=== PATIENT | female | born 1985 | race Two or more races ===

== ENCOUNTER 2018-02-26 20:41 | Emergency (ER) | payer SELFPAY ==
[~2018-02-26] VITALS: Ht 167.6 cm; Wt 65.3 kg
[2018-02-26 21:03] VITALS: BP 147/107
[2018-02-26] MEDS ORDERED: IV NORMAL SALINE 1,000ML 1,000 ML IV ONE (21:30)
[2018-02-26] MEDS ORDERED: KETOROLAC 15 MG/ML VIAL. IV ONE (21:30)
[2018-02-26] MEDS ORDERED: LORazepam 2 MG/ML VIAL IV ONE (21:30)
[2018-02-26 21:47] LABS: BASO # 0.1 x10^3/uL (0.0-0.2); BASO % 1 % (0-3); EOS % 1 % (0-3); HEMATOCRIT 41.4 % (36.0-47.0); HEMOGLOBIN 14.3 g/dL (12.0-15.5); LYMPH # 1.6 x10^3/uL (1.0-4.8); LYMPH % 19 % (24-48); MEAN CORPUSCULAR HEMOGLOBIN 33 pg (25-35); MEAN CORPUSCULAR HGB CONC 35 g/dL (31-37); MEAN CORPUSCULAR VOLUME 94 fL (79-100); MONO # 0.4 x10^3/uL (0.0-1.1); MONO % 5 % (0-9); NEUT # 6.3 x10^3uL (1.8-7.7); NEUT % 75 % (31-73); PLATELET COUNT 268 x10^3/uL (140-400); RED BLOOD COUNT 4.38 x10^6/uL (3.50-5.40); RED CELL DISTRIBUTION WIDTH 13.5 % (11.5-14.5); WHITE BLOOD COUNT 8.5 x10^3/uL (4.0-11.0)
[2018-02-26 22:05] LABS: ALBUMIN 3.9 g/dL (3.4-5.0); ALBUMIN/GLOBULIN RATIO 1.1 (1.0-1.7); CALCIUM 9.1 mg/dL (8.5-10.1); CREATININE 0.6 mg/dL (0.6-1.0); GFR 116.6; POTASSIUM 3.8 mmol/L (3.5-5.1); TOTAL BILIRUBIN 0.2 mg/dL (0.2-1.0); TOTAL PROTEIN 7.4 g/dL (6.4-8.2)
[2018-02-26 22:23] LABS: U PREG PATIENT NEGATIVE (NEG)
[2018-02-26 22:24] LABS: MAGNESIUM 1.9 mg/dL (1.8-2.4)
[2018-02-26 22:27] LABS: BACTERIA,URINE MANY /HPF (0-FEW); BILIRUBIN,URINE NEG (NEG); CLARITY,URINE HAZY; COLOR,URINE YELLOW; GLUCOSE,URINE NEG (NEG); NITRITE,URINE POS (NEG); RBC,URINE 0 /HPF (0-2); SQUAMOUS EPITHELIAL CELL,UR MOD /LPF; UROBILINOGEN,URINE 0.2 mg/dL (0.2 mg/dL)
[2018-02-26 22:28] LABS: BARBITURATES NEG (NEG); BENZODIAZEPINES NEG (NEG); CANNABINOIDS NEG (NEG); COCAINE NEG (NEG); METHADONE NEG (NEG); OPIATES NEG (NEG); PHENCYCLIDINE NEG (NEG)
[2018-02-26 22:29] LABS: AMPHETAMINE/METHAMPHETAMINE NEG (NEG)
[2018-02-26] MEDS ORDERED: LORA-254 PO (23:00)
[2018-02-26] MEDS ORDERED: CEPHALEXIN 250 MG CAPSULE PO ONE (23:00)
[2018-02-26] MEDS ORDERED: CEPH-264 PO (23:00)
--- NOTE | 2018-02-26 23:00 | PHYS DOC ---
Past History Past Medical History: Anxiety, Bipolar, Depression, Other Additional Past Medical Histor: PTSD Past Surgical History: No Surgical History Smoking: Cigarettes, Less than 1pk/day (Socially) Alcohol Use: Occasionally (socially) Social History Narrative: Form drug user Adult General Chief Complaint Chief Complaint: ANXIETY/PANIC ATTACK HPI HPI 33-year-old female with past medical history of anxiety, depression, PTSD, and bipolar disorder for which she is currently not taking any medication presents with report of possible panic attacks which have been intermittent for the past 3 days. Patient has had similar in the past. Patient reports she just "doesn't feel". Reports some headache. Reports palpitations. Reports generalized malaise. Patient does report some increased life stressors. [facility] and has appointment for next Saturday. Denies . Denies known trauma. Denies leg swelling or calf tenderness. Review of Systems Review of Systems Constitutional: Denies fever or chills; reports generalized malaise Eyes: Denies change in visual acuity, redness, or eye pain [] HENT: Denies nasal congestion or sore throat [] Respiratory: Denies cough; reports shortness of breath [] Cardiovascular: Denies chest pain; reports palpitations GI: Denies abdominal pain, nausea, vomiting, or diarrhea [] : Denies dysuria or hematuria [] Musculoskeletal: Denies back pain or leg swelling Integument: Denies rash or skin lesions [] Neurologic: Denies headache, focal weakness or sensory changes [] Complete systems were reviewed and found to be within normal limits, except as documented in this note. Current Medications Current Medications Current Medications Medications (Trade) Dose Ordered Sig/[facility] Start Time Stop Time Status Last Admin Dose Admin Ketorolac Tromethamine (Toradol 15mg Vial) 15 mg 1X ONCE 02/26/18 21:30 02/26/18 21:32 DC 02/26/18 21:36 15 MG Lorazepam (Ativan) 1 mg 1X ONCE 02/26/18 21:30 02/26/18 21:32 DC 02/26/18 21:36 1 MG Sodium Chloride 1,000 ml @ 1,000 mls/hr 1X ONCE 02/26/18 21:30 02/26/18 22:29 DC 02/26/18 21:35 1,000 MLS/HR Allergies Allergies Allergies Coded Allergies Type Severity Reaction Last Updated Verified No Known Drug Allergies 02/26/18 No Physical Exam Physical Exam Constitutional: Well developed, well nourished, anxious, crying hysterically HENT: Normocephalic, atraumatic, oropharynx moist, nose with clear discharge] Eyes: PERRL, EOMI, conjunctiva normal, no discharge. [] Neck: Normal range of motion, no tenderness, supple, no meningeal signs Cardiovascular: Heart rate regular rhythm, no murmur [] Lungs & Thorax: Bilateral breath sounds clear to auscultation; no wheezes rhonchi or rails Abdomen: Soft, no tenderness Skin: Warm, dry, no erythema, no rash. [] Extremities: No tenderness, ROM intact, no edema. [] Neurologic: Alert and oriented X 3, normal motor function, normal sensory function, no focal deficits noted. [] Psychologic: Affect- crying, Mood- anxious Current Patient Data Vital Signs Vital Signs Date Time Temp Pulse Resp B/P (MAP) Pulse Ox O2 Delivery O2 Flow Rate FiO2 02/26/18 21:03 98.5 98 18 98 Room Air Lab Results Laboratory Tests Test 02/26/18 21:29 02/26/18 21:30 02/26/18 22:05 White Blood Count 8.5 x10^3/uL (4.0-11.0) Red Blood Count 4.38 x10^6/uL (3.50-5.40) Hemoglobin 14.3 g/dL (12.0-15.5) Hematocrit 41.4 % (36.0-47.0) Mean Corpuscular Volume 94 fL (79-100) Mean Corpuscular Hemoglobin 33 pg (25-35) Mean Corpuscular Hemoglobin Concent 35 g/dL (31-37) Red Cell Distribution Width 13.5 % (11.5-14.5) Platelet Count 268 x10^3/uL (140-400) Neutrophils (%) (Auto) 75 % (31-73) H Lymphocytes (%) (Auto) 19 % (24-48) L Monocytes (%) (Auto) 5 % (0-9) Eosinophils (%) (Auto) 1 % (0-3) Basophils (%) (Auto) 1 % (0-3) Neutrophils # (Auto) 6.3 x10^3uL (1.8-7.7) Lymphocytes # (Auto) 1.6 x10^3/uL (1.0-4.8) Monocytes # (Auto) 0.4 x10^3/uL (0.0-1.1) Eosinophils # (Auto) 0.0 x10^3/uL (0.0-0.7) Basophils # (Auto) 0.1 x10^3/uL (0.0-0.2) Magnesium Level 1.9 mg/dL (1.8-2.4) Creatine Kinase 67 U/L (26-192) Creatine Kinase MB (Mass) 0.9 ng/mL (0.0-3.6) Creatine Kinase MB Relative Index 1.3 % (0-4) Troponin I Quantitative < 0.017 ng/mL (0-0.055) Ethyl Alcohol Level < 10 mg/dL (0-10) Sodium Level 138 mmol/L (136-145) Potassium Level 3.8 mmol/L (3.5-5.1) Chloride Level 104 mmol/L (98-107) Carbon Dioxide Level 26 mmol/L (21-32) Anion Gap 8 (6-14) Blood Urea Nitrogen 8 mg/dL (7-20) Creatinine 0.6 mg/dL (0.6-1.0) Estimated GFR (Cockcroft-Gault) 116.6 BUN/Creatinine Ratio 13 (6-20) Glucose Level 114 mg/dL (70-99) H Calcium Level 9.1 mg/dL (8.5-10.1) Total Bilirubin 0.2 mg/dL (0.2-1.0) Aspartate Amino Transferase (AST) 14 U/L (15-37) L Alanine Aminotransferase (ALT) 25 U/L (14-59) Alkaline Phosphatase 86 U/L (46-116) Total Protein 7.4 g/dL (6.4-8.2) Albumin 3.9 g/dL (3.4-5.0) Albumin/Globulin Ratio 1.1 (1.0-1.7) Urine Collection Type Unknown Urine Color Yellow Urine Clarity Hazy Urine pH 6.5 Urine Specific [place] 1.015 Urine Protein Neg (NEG-TRACE) Urine Glucose (UA) Neg mg/dL (NEG) Urine Ketones (Stick) Neg mg/dL (NEG) Urine Blood Trace (NEG) Urine Nitrite Pos (NEG) Urine Bilirubin Neg (NEG) Urine Urobilinogen Dipstick 0.2 mg/dL (0.2 mg/dL) Urine Leukocyte Esterase Mod (NEG) Urine RBC 0 /HPF (0-2) Urine WBC 5-10 /HPF (0-4) Urine Squamous Epithelial Cells Mod /LPF Urine Bacteria Many /HPF (0-FEW) Urine Test Negative (NEG) Urine Opiates Screen Neg (NEG) Urine Methadone Screen Neg (NEG) Urine Barbiturates Neg (NEG) Urine Phencyclidine Screen Neg (NEG) Urine Amphetamine/Methamphetamine Neg (NEG) Urine Benzodiazepines Screen Neg (NEG) Urine Cocaine Screen Neg (NEG) Urine Cannabinoids Screen Neg (NEG) Urine Ethyl Alcohol Neg (NEG) EKG EKG @2139 NSR at 80bpm, NO ST elevation Radiology/Procedures Radiology/Procedures PROCEDURE: CHEST PA & LATERAL PA and lateral chest radiographs 02/26/2018 Clinical History: Chest pain and shortness of breath. PA and lateral digital radiographs of the chest were obtained. No previous studies are available for comparison. The cardiac and mediastinal silhouettes are within normal limits in size and configuration. No pulmonary infiltrate is seen. No pleural effusion or pneumothorax is noted. The osseous structures are grossly intact. Impression: No radiographic evidence of active cardiopulmonary disease. Electronically signed by: Alexandro Davis MD (02/26/2018 11:53 PM) [facility] Course & Med Decision Making Course & Med Decision Making Pertinent Labs and Imaging studies reviewed. (See chart for details) Patient presents with history of present illness and physical exam concerning for panic attack. Patient does have history of anxiety, depression, PTSD, and bipolar disorder for which she is not currently prescribed any medication. Ativan provided with interval improvement of symptoms. Labs obtained and posted to chart. EKG stable. UA with signs of infection (positive nitrite). Empiric antibiotics initiated. Patient stable for discharge with outpatient follow-up with PCP/psych/behavioral health. Discussed findings and plan with patient and family, who acknowledge understanding and agreement. Dragon Disclaimer Dragon Disclaimer This electronic medical record was generated, in whole or in part, using a voice recognition dictation system. Departure Departure: Impression: Primary Impression: Anxiety Additional Impression: Urinary tract infection Disposition: HOME, SELF-CARE Condition: IMPROVED Referrals: PCPYARIEL (PCP) Patient Instructions: Anxiety and Panic Attacks, [id number], Urinary Tract Infection, [id number] Scripts Lorazepam (ATIVAN) 1 Mg Tablet 0.5 MG PO Q6HRS PRN for ANXIETY, #10 TAB Prov: KEHINDE ORDOÑEZ DO 02/26/18 Cephalexin (KEFLEX) 500 Mg Capsule 1 CAP PO TID, #21 CAP Prov: KEHINDE ORDOÑEZ DO 02/26/18 Problem Qualifiers Additional Impression: Urinary tract infection Urinary tract infection type: acute cystitis Hematuria presence: without hematuria Qualified Codes: N30.00 - Acute cystitis without hematuria KEHINDE ORDOÑEZ DO Feb 26, 2018 23:00
--- NOTE | 2018-02-26 23:57 | RAD ---
PA and lateral chest radiographs 02/26/2018 Clinical History: Chest pain and shortness of breath. PA and lateral digital radiographs of the chest were obtained. No previous studies are available for comparison. The cardiac and mediastinal silhouettes are within normal limits in size and configuration. No pulmonary infiltrate is seen. No pleural effusion or pneumothorax is noted. The osseous structures are grossly intact. Impression: No radiographic evidence of active cardiopulmonary disease. Electronically signed by: Alexandro Davis MD (02/26/2018 11:53 PM) [facility]
--- NOTE | 2018-02-27 04:08 | EKG ---
[address] [address] Test Date: 2018-02-26 Test Time: 21:39:26 Pat Name: KYLE TAVAREZ Department: Room: Gender: F Cinder [employer] Mason: : 1985 Requested By: KHEINDE ORDOÑEZ Order Number: [id number] Reading MD: Tank Zee MD Measurements Intervals [place] Rate: 80 P: 59 NV: 138 QRS: 41 QRSD: 80 T: 32 QT: 364 QTc: 423 Interpretive Statements SINUS RHYTHM Electronically Signed On 03-03-2018 10:53:55 CDT by Tank Zee MD
[2018-02-27 13:01] LABS: FREE T4 1.01 ng/dL (0.76-1.46); THYROID STIM HORMONE (TSH) 1.802 uIU/mL (0.358-3.740)
== END 2018-02-26 23:19 | disposition home or self-care (01) ==
LOC: ER 20:41
DX: F41.9 Anxiety disorder, unspecified (principal); N39.0 Urinary tract infection, site not specified; F31.9 Bipolar disorder, unspecified; F43.10 Post-traumatic stress disorder, unspecified; F17.210 Nicotine dependence, cigarettes, uncomplicated
CPT/HCPCS: 36415; 71046; 80053; 80307; 81001; 81025; 82553; 83735; 84439; 84443; 84484; 85025; 87086; 93005; 96374; 96375; 99285; G0480; J1885; J2060; 87186; G0479; J7030

== ENCOUNTER 2018-03-27 01:36 | Emergency (ER) | payer SELFPAY ==
[~2018-03-27] VITALS: Ht 157.5 cm; Wt 69.4 kg
[~2018-03-27 01:36] MED LIST: CEPH-264 PO; LORA-254 PO
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
[2018-03-27 02:29] LABS: BACTERIA,URINE FEW /HPF (0-FEW); BILIRUBIN,URINE NEG (NEG); CLARITY,URINE HAZY; COLOR,URINE YELLOW; GLUCOSE,URINE NEG (NEG); NITRITE,URINE NEG (NEG); RBC,URINE RARE /HPF (0-2); SQUAMOUS EPITHELIAL CELL,UR OCC /LPF; UROBILINOGEN,URINE 0.2 mg/dL (0.2 mg/dL)
[2018-03-27 02:30] LABS: BARBITURATES NEG (NEG); BENZODIAZEPINES NEG (NEG); CANNABINOIDS POS (NEG); COCAINE NEG (NEG); METHADONE NEG (NEG); OPIATES NEG (NEG); PHENCYCLIDINE NEG (NEG); TRICHOMONAS,URINE PRESENT
[2018-03-27] MEDS ORDERED: ONDA8TAB12 PO (02:30)
[2018-03-27] MEDS ORDERED: CYCL-331 PO (02:30)
[2018-03-27 02:31] LABS: AMPHETAMINE/METHAMPHETAMINE NEG (NEG)
[2018-03-27] MEDS ORDERED: KETOROLAC 60 MG/2 ML VIAL. IM ONE (02:45)
[2018-03-27] MEDS ORDERED: ONDANSETRON ODT 4 MG TAB.RAPDIS PO ONE ×2 (02:45→03:45)
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
[2018-03-27] MEDS ORDERED: CEPH-264 PO (03:31)
[2018-03-27] MEDS ORDERED: metroNIDAZOLE 500 MG TABLET PO ONE (03:45)
[2018-03-27] MEDS ORDERED: AZITHROMYCIN 250 MG TABLET. PO ONE (03:45)
[2018-03-27] MEDS ORDERED: cefTRIAXone IM 1 GM VIAL IM ONE (03:45)
[2018-03-27 04:49] VITALS: BP 141/87
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
== END 2018-03-27 04:49 | disposition home or self-care (01) ==
LOC: ER 01:36
DX: S39.012A Strain of muscle, fascia and tendon of lower back, initial encounter (principal); R07.89 Other chest pain; R51 Headache; A59.9 Trichomoniasis, unspecified; N39.0 Urinary tract infection, site not specified; F17.210 Nicotine dependence, cigarettes, uncomplicated; Z87.440 Personal history of urinary (tract) infections; V43.63XA Car passenger injured in collision with pick-up truck in traffic accident, initial encounter; Y93.89 Activity, other specified; Y92.488 Other paved roadways as the place of occurrence of the external cause; Y99.8 Other external cause status
CPT/HCPCS: 36415; 70450; 71046; 72125; 80307; 81001; 81025; 87086; 87491; 87591; 96372; 99285; J0456; J0696; J1885; Q0162; G0479

== ENCOUNTER 2018-05-21 02:33 | Emergency (ER) | payer SELFPAY ==
[~2018-05-21] VITALS: Ht 157.5 cm; Wt 74.8 kg
[~2018-05-21 02:33] MED LIST changes: +CYCL-331 PO; +ONDA8TAB12 PO
[2018-05-21 02:38] VITALS: BP 119/68
--- NOTE | 2018-05-21 03:14 | PHYS DOC ---
Past History Past Medical History: Anxiety Additional Past Medical Histor: PTSD Past Surgical History: No Surgical History Smoking: Cigarettes, Less than 1pk/day Additional Smoking Information: / PPD Alcohol Use: Occasionally Additional Alcohol Information: 3 times a week Drug Use: Marijuana Adult General Chief Complaint Chief Complaint: FINGER INJURY HPI HPI 33-year-old female presents with bilateral finger swelling. The patient has had some intermittent swelling of her hands lately. 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 Ring felt so tight that it seemed to be constricting the finger. It was erythematous, but not hot. She denies loss of feeling or paresthesia. She is unable to get this ring off. The patient also noticed that her right ring finger which also had a ring on it seemed to be swelling the same way, but was not as tight yet. She came to the ED to have the rings removed. The patient has been eating more salty foods lately due to the holidays. Review of Systems Review of Systems Constitutional: Denies fever or chills [] Eyes: Denies change in visual acuity, redness, or eye pain [] HENT: Denies nasal congestion or sore throat [] Respiratory: Denies cough or shortness of breath [] Cardiovascular: No additional information not addressed in HPI [] GI: Denies abdominal pain, nausea, vomiting, bloody stools or diarrhea [] : Denies dysuria or hematuria [] Musculoskeletal: Bilateral hand swelling with ringed strictures on bilateral ring fingers.[] Integument: Denies rash or skin lesions [] Neurologic: Denies headache, focal weakness or sensory changes [] Endocrine: Denies polyuria or polydipsia [] All other systems were reviewed and found to be within normal limits, except as documented in this note. Allergies Allergies Allergies Coded Allergies Type Severity Reaction Last Updated Verified No Known Drug Allergies 02/26/18 No Physical Exam Physical Exam Constitutional: Well developed, well nourished, no acute distress, non-toxic appearance. [] HENT: Normocephalic, atraumatic, bilateral external ears normal, oropharynx moist, no oral exudates, nose normal. [] Eyes: PERRLA, EOMI, conjunctiva normal, no discharge. [] Neck: Normal range of motion, no tenderness, supple, no stridor. [] Cardiovascular:Heart rate regular rhythm, no murmur [] Lungs & Thorax: Bilateral breath sounds clear to auscultation [] Abdomen: Bowel sounds normal, soft, no tenderness, no masses, no pulsatile masses. [] Skin: Warm, dry, no erythema, no rash. [] Back: No tenderness, no CVA tenderness. [] Extremities: Bilateral finger swelling. Left ring finger with erythema, no warmth, ring is tight around the skin. Right ring finger mildly erythematous, no warmth, ring has some movement on that finger.[] Neurologic: Alert and oriented X 3, normal motor function, normal sensory function, no focal deficits noted. [] Psychologic: Affect normal, judgement normal, mood normal. [] Current Patient Data Vital Signs Vital Signs Date Time Temp Pulse Resp B/P (MAP) Pulse Ox O2 Delivery O2 Flow Rate FiO2 05/21/18 02:38 97.9 69 99 Room Air EKG EKG [] Radiology/Procedures Radiology/Procedures [] Course & Med Decision Making Course & Med Decision Making Pertinent Labs and Imaging studies reviewed. (See chart for details) The patient's ring on her left hand was too swollen to be removed manually. I was able to cut this off with a ring cutter and then side snips. There were no complications. The patient wanted to preserve the ring on her right hand possible. We placed ice around that finger for a few minutes and the patient was able to manually remove the ring. The patient had immediate relief of the discomfort in her fingers. She is stable for discharge at this time. [] Dragon Disclaimer Dragon Disclaimer This electronic medical record was generated, in whole or in part, using a voice recognition dictation system. Departure Departure: Impression: Primary Impression: Bilateral hand swelling Additional Impression: Ring or other jewelry causing external constriction, initial e... Disposition: HOME, SELF-CARE Condition: STABLE Patient Instructions: Edema, [id number] Problem Qualifiers VICTORIA INGARM DO May 21, 2018 03:14
== END 2018-05-21 03:11 | disposition home or self-care (01) ==
LOC: ER 02:33
DX: S60.445A External constriction of left ring finger, initial encounter (principal); S60.444A External constriction of right ring finger, initial encounter; R22.33 Localized swelling, mass and lump, upper limb, bilateral; F41.9 Anxiety disorder, unspecified; F17.210 Nicotine dependence, cigarettes, uncomplicated; W49.04XA Ring or other jewelry causing external constriction, initial encounter; Y93.89 Activity, other specified; Y92.89 Other specified places as the place of occurrence of the external cause; Y99.8 Other external cause status
CPT/HCPCS: 99284

== ENCOUNTER 2018-07-24 16:49 | Emergency (ER) | payer SELFPAY ==
[~2018-07-24] VITALS: Ht 157.5 cm; Wt 69.4 kg
[2018-07-24 17:10] VITALS: BP 112/61
[2018-07-24] MEDS ORDERED: NAPR500T8 PO (17:10)
[2018-07-24] MEDS ORDERED: PENI500T PO (17:10)
--- NOTE | 2018-07-24 17:10 | PHYS DOC ---
Past History Past Medical History: Anxiety Additional Past Medical Histor: PTSD Past Surgical History: No Surgical History Smoking: Cigarettes, Less than 1pk/day Alcohol Use: Occasionally Drug Use: Marijuana Adult General Chief Complaint Chief Complaint: DENTAL PROBLEM HPI HPI 33-year-old otherwise healthy female presents with toothache. She states her right upper molar is cracked and is been causing a lot of pain. She's not noticed any swelling. She does states she has cold intolerance. She states it feels like tiny needles poking her at all times. She also has some pain on the bottom half of her jaw. She feels like her gums may be swollen. She has not seen a dentist in some time. She has no issues with trismus.] Review of Systems Review of Systems All other systems were reviewed and found to be within normal limits, except as documented in this note. Allergies Allergies Allergies Coded Allergies Type Severity Reaction Last Updated Verified No Known Drug Allergies 02/26/18 No Physical Exam Physical Exam Constitutional: Well developed, well nourished, no acute distress, non-toxic appearance. [] HENT: Widespread caries she does have a noticeable fracture to her most posterior right upper molar[] Eyes: PERRLA, EOMI, conjunctiva normal, no discharge. [] Neck: Normal range of motion, no tenderness, supple, no stridor. [] Cardiovascular:Heart rate regular rhythm, no murmur [] Lungs & Thorax: Bilateral breath sounds clear to auscultation [] Abdomen: Bowel sounds normal, soft, no tenderness, no masses, no pulsatile masses. [] Skin: Warm, dry, no erythema, no rash. [] Back: No tenderness, no CVA tenderness. [] Extremities: No tenderness, no cyanosis, no clubbing, ROM intact, no edema. [] Neurologic: Alert and oriented X 3, normal motor function, normal sensory function, no focal deficits noted. [] Psychologic: Anxious. [] Current Patient Data Vital Signs Vital Signs Date Time Temp Pulse Resp B/P (MAP) Pulse Ox O2 Delivery O2 Flow Rate FiO2 07/24/18 16:59 97.6 74 18 98 EKG EKG [] Radiology/Procedures Radiology/Procedures [] Course & Med Decision Making Course & Med Decision Making Pertinent Labs and Imaging studies reviewed. (See chart for details) [] Dragon Disclaimer Dragon Disclaimer This electronic medical record was generated, in whole or in part, using a voice recognition dictation system. Departure Departure: Impression: Primary Impression: Pain due to dental caries Disposition: HOME, SELF-CARE Condition: STABLE Referrals: PCP,YARIEL (PCP) Patient Instructions: Dental Caries, Toothache-Brief Scripts Naproxen (NAPROXEN) 500 Mg Tablet.dr 1 TAB PO Q12HR PRN for PAIN, #30 TAB 1 Refill Prov: LENORE CHAPMAN DO 07/24/18 Penicillin V Potassium (PENICILLIN V POTASSIUM) 500 Mg Tablet 1 TAB PO QID for dental infection, #40 TAB Prov: LENORE CHAPMAN DO 07/24/18 LENORE CHAPMAN DO Jul 24, 2018 17:10
== END 2018-07-24 17:19 | disposition home or self-care (01) ==
LOC: ER 16:49
DX: K02.9 Dental caries, unspecified (principal); F41.9 Anxiety disorder, unspecified; F17.210 Nicotine dependence, cigarettes, uncomplicated
CPT/HCPCS: 99283

== ENCOUNTER 2018-09-29 12:58 | Emergency (ER) | payer SELFPAY ==
[~2018-09-29] VITALS: Ht 157.5 cm; Wt 77.4 kg
[~2018-09-29 12:58] MED LIST changes: +NAPR500T8 PO; +PENI500T PO
[2018-09-29] MEDS ORDERED: MVI, ADULT NO.4 WITH VIT K 10 ML, FOLIC ACID SYRINGE for ER 1 MG, THIAMINE INJ 100 MG i... IV ONE ×4 (13:30)
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
[2018-09-29 13:52] LABS: BASO % 1 % (0-3); EOS % 1 % (0-3); HEMATOCRIT 40.1 % (36.0-47.0); HEMOGLOBIN 13.5 g/dL (12.0-15.5); LYMPH # 1.3 x10^3/uL (1.0-4.8); LYMPH % 27 % (24-48); MEAN CORPUSCULAR HEMOGLOBIN 32 pg (25-35); MEAN CORPUSCULAR HGB CONC 34 g/dL (31-37); MEAN CORPUSCULAR VOLUME 96 fL (79-100); MONO # 0.3 x10^3/uL (0.0-1.1); MONO % 7 % (0-9); NEUT % 64 % (31-73); PLATELET COUNT 256 x10^3/uL (140-400); RED BLOOD COUNT 4.17 x10^6/uL (3.50-5.40); RED CELL DISTRIBUTION WIDTH 14.6 % (11.5-14.5); WHITE BLOOD COUNT 4.7 x10^3/uL (4.0-11.0)
[2018-09-29 14:05] LABS: ACETAMIN < 2.0 mcg/mL (10-30); ETHANOL 97 mg/dL (0-10); SALIC 3.1 mg/dL (2.8-20.0)
[2018-09-29 14:07] LABS: ALBUMIN 3.5 g/dL (3.4-5.0); ALBUMIN/GLOBULIN RATIO 0.9 (1.0-1.7); CALCIUM 8.4 mg/dL (8.5-10.1); CREATININE 0.4 mg/dL (0.6-1.0); GFR 186.2; POTASSIUM 4.1 mmol/L (3.5-5.1); TOTAL BILIRUBIN 0.2 mg/dL (0.2-1.0); TOTAL PROTEIN 7.3 g/dL (6.4-8.2)
[2018-09-29 14:12] LABS: AMPHETAMINE/METHAMPHETAMINE NEG (NEG); BARBITURATES NEG (NEG); BENZODIAZEPINES NEG (NEG); CANNABINOIDS POS (NEG); COCAINE NEG (NEG); METHADONE NEG (NEG); OPIATES NEG (NEG); PHENCYCLIDINE NEG (NEG)
[2018-09-29 14:17] LABS: BACTERIA,URINE 0 /HPF (0-FEW); BILIRUBIN,URINE NEG (NEG); CLARITY,URINE CLEAR; COLOR,URINE YELLOW; GLUCOSE,URINE NEG (NEG); NITRITE,URINE NEG (NEG); SQUAMOUS EPITHELIAL CELL,UR FEW /LPF; UROBILINOGEN,URINE 0.2 mg/dL (0.2 mg/dL)
[2018-09-29 16:08] VITALS: BP 151/98
== END 2018-09-29 16:12 | disposition home or self-care (01) ==
LOC: EEVIPCON 12:58 → ER 12:58
DX: R45.851 Suicidal ideations (principal); S60.812A Abrasion of left wrist, initial encounter; S60.811A Abrasion of right wrist, initial encounter; F41.9 Anxiety disorder, unspecified; F31.9 Bipolar disorder, unspecified; F17.210 Nicotine dependence, cigarettes, uncomplicated; F10.20 Alcohol dependence, uncomplicated; F12.10 Cannabis abuse, uncomplicated; F43.10 Post-traumatic stress disorder, unspecified; Y90.4 Blood alcohol level of 80-99 mg/100 ml; X78.0XXA Intentional self-harm by sharp glass, initial encounter; Y93.89 Activity, other specified; Y92.89 Other specified places as the place of occurrence of the external cause; Y99.8 Other external cause status
CPT/HCPCS: 36415; 80053; 80307; 80329; 81001; 85025; 96365; 96366; 99285; G0480; 82003; J7030

== ENCOUNTER 2019-01-11 13:45 | Inpatient (IN) | payer SELFPAY ==
[~2019-01-11] VITALS: Ht 157.5 cm; Wt 70.3 kg
--- NOTE | 2019-01-11 14:12 | PHYS DOC ---
Past History Past Medical History: Anxiety, Bipolar, Depression, Other Additional Past Medical Histor: PTSD Past Surgical History: No Surgical History Smoking: Cigarettes, Less than 1pk/day Alcohol Use: Heavy Drug Use: Marijuana Adult General Chief Complaint Chief Complaint: SUICDAL IDEATION [facility] HPI Patient is a 33-year-old female presents with suicidal ideation. She does not have a defined plan. She reports CPR having been performed on her this morning because of overdosing. Patient denies any chest pain or difficulty breathing. Patient reports drinking a bottle of whiskey just prior to arrival. Denies any other coingestants. Nothing makes symptoms better or worse.[] Review of Systems Review of Systems Constitutional: Denies fever or chills [] Eyes: Denies change in visual acuity, redness, or eye pain [] HENT: Denies nasal congestion or sore throat [] Respiratory: Denies cough or shortness of breath [] Cardiovascular: No additional information not addressed in HPI [] GI: Denies abdominal pain, nausea, vomiting, bloody stools or diarrhea [] : Denies dysuria or hematuria [] Musculoskeletal: Denies back pain or joint pain [] Integument: Denies rash or skin lesions [] Neurologic: Denies headache, focal weakness or sensory changes [] Endocrine: Denies polyuria or polydipsia [] All other systems were reviewed and found to be within normal limits, except as documented in this note. Allergies Allergies Allergies Coded Allergies Type Severity Reaction Last Updated Verified No Known Drug Allergies 02/26/18 No Physical Exam Physical Exam Constitutional: Well developed, well nourished, no acute distress, non-toxic appearance. [] HENT: Normocephalic, atraumatic, bilateral external ears normal, oropharynx moist, no oral exudates, nose normal. [] Eyes: PERRLA, EOMI, conjunctiva normal, no discharge. [] Neck: Normal range of motion, no tenderness, supple, no stridor. [] Cardiovascular:Heart rate regular rhythm, no murmur [] Lungs & Thorax: Bilateral breath sounds clear to auscultation [] Abdomen: Bowel sounds normal, soft, no tenderness, no masses, no pulsatile masses. [] Skin: Warm, dry, no erythema, no rash. [] Back: No tenderness, no CVA tenderness. [] Extremities: No tenderness, no cyanosis, no clubbing, ROM intact, no edema. [] Neurologic: Alert and oriented X 3, normal motor function, normal sensory function, no focal deficits noted. [] Psychologic: Affect tearful, judgement impaired, mood depressed. Patient will not answer with the trigger was that made her suicidal today[] EKG EKG EKG shows a sinus rhythm at 89 bpm, normal axis, no ST elevation. Normal QTC, no terminal 40 ms QRS prolongation in lead aVR. Interpreted by me at 1403[] Radiology/Procedures Radiology/Procedures PROCEDURE: PORTABLE CHEST 1V EXAM: AP View of the chest DATE: 01/11/2019 2:04 PM INDICATION: CPR was administered COMPARISON: No Prior FINDINGS: The heart is not enlarged. Mediastinal and hilar contours are normal. No focal parenchymal airspace opacity. No pleural effusion or pneumothorax. No definite rib fractures are seen on the single frontal view. IMPRESSION: 1. No radiographic evidence for acute cardiopulmonary process.[] Course & Med Decision Making Course & Med Decision Making Pertinent Labs and Imaging studies reviewed. (See chart for details) ED course: Patient arrived, was placed in bed, and tolerated exam well. Shortly after arriving she fell asleep. She was maintaining her airway. After the return of laboratory studies that were available (unable to get a urine sample), he elected to admit the patient given her alcohol level in the prolonged amount of time it would take for her to be at a low enough level for mental health to perform their evaluation. Consultation was made with the hospitalist service who graciously accepted. She was admitted in improved condition. Medical decision making: Patient with suicidal ideation who is alcohol intoxi cated. There is no evidence of an other significant toxidrome. No evidence of salicylate or acetaminophen toxicity. No evidence of significant electrolyte abnormalities.[] Dragon Disclaimer Dragon Disclaimer This electronic medical record was generated, in whole or in part, using a voice recognition dictation system. Departure Departure: Impression: Primary Impression: Alcohol intoxication Additional Impression: Suicidal ideation Disposition: 09 ADMITTED INPATIENT Admitting Physician: Anshu Sultana Condition: STABLE Referrals: PCP,NO (PCP) Problem Qualifiers Primary Impression: Alcohol intoxication Complication of substance-induced condition: uncomplicated Qualified Codes: F10.920 - Alcohol use, unspecified with intoxication, uncomplicated RAJINDER GALDAMEZ DO Jan 11, 2019 14:12
--- NOTE | 2019-01-11 14:44 | RAD ---
EXAM: AP View of the chest DATE: 01/11/2019 2:04 PM INDICATION: CPR was administered COMPARISON: No Prior FINDINGS: The heart is not enlarged. Mediastinal and hilar contours are normal. No focal parenchymal airspace opacity. No pleural effusion or pneumothorax. No definite rib fractures are seen on the single frontal view. IMPRESSION: 1. No radiographic evidence for acute cardiopulmonary process. Electronically signed by: Paulo Dietrich MD (01/11/2019 2:41 PM) [facility]
[2019-01-11 14:47] LABS: BASO # 0.1 x10^3/uL (0.0-0.2); BASO % 1 % (0-3); EOS % 0 % (0-3); HEMATOCRIT 38.4 % (36.0-47.0); HEMOGLOBIN 12.9 g/dL (12.0-15.5); LYMPH % 32 % (24-48); MEAN CORPUSCULAR HEMOGLOBIN 33 pg (25-35); MEAN CORPUSCULAR HGB CONC 34 g/dL (31-37); MEAN CORPUSCULAR VOLUME 98 fL (79-100); MONO # 0.4 x10^3/uL (0.0-1.1); MONO % 6 % (0-9); NEUT # 3.9 x10^3uL (1.8-7.7); NEUT % 61 % (31-73); PLATELET COUNT 212 x10^3/uL (140-400); RED BLOOD COUNT 3.94 x10^6/uL (3.50-5.40); WHITE BLOOD COUNT 6.3 x10^3/uL (4.0-11.0)
[2019-01-11] MEDS ORDERED: IV NORMAL SALINE 1,000ML 1,000 ML IV ONE (15:00)
[2019-01-11 15:16] LABS: ALBUMIN 3.6 g/dL (3.4-5.0); ALBUMIN/GLOBULIN RATIO 0.9 (1.0-1.7); CALCIUM 8.1 mg/dL (8.5-10.1); CREATININE 0.5 mg/dL (0.6-1.0); GFR 143.9; MAGNESIUM 2.1 mg/dL (1.8-2.4); POTASSIUM 3.5 mmol/L (3.5-5.1); TOTAL BILIRUBIN 0.1 mg/dL (0.2-1.0); TOTAL PROTEIN 7.5 g/dL (6.4-8.2)
[2019-01-11 15:23] LABS: ACETAMIN < 2.0 mcg/mL (10-30); ETHANOL 347 mg/dL (0-10); SALIC 3.2 mg/dL (2.8-20.0)
[2019-01-11] MEDS ORDERED: MVI, ADULT NO.4 WITH VIT K 10 ML, FOLIC ACID SYRINGE for ER 1 MG, THIAMINE INJ 100 MG i... IV ONE ×4 (15:30)
[2019-01-11] MEDS ORDERED: MVI, ADULT NO.4 WITH VIT K 10 ML VIAL IV ONE (15:39)
[2019-01-11] MEDS ORDERED: FOLIC ACID 5 MG/ML SYRINGE for ER IV ONE (15:39)
[2019-01-11] MEDS ORDERED: THIAMINE 200 MG/2 ML VIAL. IV ONE (15:39)
[2019-01-11] MEDS ORDERED: ONDANSETRON PF 4 MG/2 ML VIAL. IV PRN (17:15)
[2019-01-11] MEDS ORDERED: ACETAMINOPHEN 325 MG TABLET PO PRN (17:15)
[2019-01-11 17:59] VITALS: BP 148/89
[2019-01-11] MEDS ORDERED: diphenhydrAMINE 50 MG/ML VIAL IVP PRN (19:15)
[2019-01-11] MEDS ORDERED: cloNIDine HCL 0.1 MG TABLET PO PRN (19:15)
[2019-01-11 19:52] LABS: BARBITURATES NEG (NEG); BENZODIAZEPINES NEG (NEG); CANNABINOIDS POS (NEG); COCAINE NEG (NEG); METHADONE NEG (NEG); OPIATES NEG (NEG); PHENCYCLIDINE NEG (NEG)
[2019-01-11 19:54] LABS: AMPHETAMINE/METHAMPHETAMINE POS (NEG)
[2019-01-11 19:57] VITALS: BP 113/70
--- NOTE | 2019-01-11 20:43 | PDOC ---
Exam Note: Robert Note: Please also refer to the separate dictated note~for this date of service dictated separately.~Patient seen individually. Discussed the patient with Nursing staff reviewed the chart.~Reviewed interim history and current functioning. Reviewed vital signs,~Labs/ Radiology~and current medications noted below. Continue current treatment with the changes noted in the dictated addendum note Assessment: Vital Signs/I&O: Vital Signs Date Time Temp Pulse Resp B/P (MAP) Pulse Ox O2 Delivery O2 Flow Rate FiO2 01/11/19 19:57 97.8 98 18 113/70 (84) 99 Room Air Labs: Laboratory Tests Test 01/11/19 14:27 01/11/19 19:30 White Blood Count 6.3 x10^3/uL (4.0-11.0) Red Blood Count 3.94 x10^6/uL (3.50-5.40) Hemoglobin 12.9 g/dL (12.0-15.5) Hematocrit 38.4 % (36.0-47.0) Mean Corpuscular Volume 98 fL (79-100) Mean Corpuscular Hemoglobin 33 pg (25-35) Mean Corpuscular Hemoglobin Concent 34 g/dL (31-37) Red Cell Distribution Width 14.0 % (11.5-14.5) Platelet Count 212 x10^3/uL (140-400) Neutrophils (%) (Auto) 61 % (31-73) Lymphocytes (%) (Auto) 32 % (24-48) Monocytes (%) (Auto) 6 % (0-9) Eosinophils (%) (Auto) 0 % (0-3) Basophils (%) (Auto) 1 % (0-3) Neutrophils # (Auto) 3.9 x10^3uL (1.8-7.7) Lymphocytes # (Auto) 2.0 x10^3/uL (1.0-4.8) Monocytes # (Auto) 0.4 x10^3/uL (0.0-1.1) Eosinophils # (Auto) 0.0 x10^3/uL (0.0-0.7) Basophils # (Auto) 0.1 x10^3/uL (0.0-0.2) Prothrombin Time 10.2 SEC (9.4-11.4) Prothrombin Time INR 1.0 (0.9-1.1) Sodium Level 143 mmol/L (136-145) Potassium Level 3.5 mmol/L (3.5-5.1) Chloride Level 108 mmol/L (98-107) H Carbon Dioxide Level 24 mmol/L (21-32) Anion Gap 11 (6-14) Blood Urea Nitrogen 8 mg/dL (7-20) Creatinine 0.5 mg/dL (0.6-1.0) L Estimated GFR (Cockcroft-Gault) 143.9 BUN/Creatinine Ratio 16 (6-20) Glucose Level 95 mg/dL (70-99) Calcium Level 8.1 mg/dL (8.5-10.1) L Magnesium Level 2.1 mg/dL (1.8-2.4) Total Bilirubin 0.1 mg/dL (0.2-1.0) L Aspartate Amino Transferase (AST) 19 U/L (15-37) Alanine Aminotransferase (ALT) 16 U/L (14-59) Alkaline Phosphatase 60 U/L (46-116) Troponin I Quantitative < 0.017 ng/mL (0-0.055) FJ-Yjc-Q-Type Natriuretic Peptide 29 pg/mL (0-124) Total Protein 7.5 g/dL (6.4-8.2) Albumin 3.6 g/dL (3.4-5.0) Albumin/Globulin Ratio 0.9 (1.0-1.7) L Lipase 77 U/L (73-393) Salicylates Level 3.2 mg/dL (2.8-20.0) Salicylate Last Dose Date Unk Salicylate Last Dose Time Unk Acetaminophen Level < 2.0 mcg/mL (10-30) L Acetaminophen Last Dose Date Unk Acetaminophen Last Dose Time Unk Ethyl Alcohol Level 347 mg/dL (0-10) H Urine Opiates Screen Neg (NEG) Urine Methadone Screen Neg (NEG) Urine Barbiturates Neg (NEG) Urine Phencyclidine Screen Neg (NEG) Urine Amphetamine/Methamphetamine Pos (NEG) Urine Benzodiazepines Screen Neg (NEG) Urine Cocaine Screen Neg (NEG) Urine Cannabinoids Screen Pos (NEG) Urine Ethyl Alcohol Pos (NEG) Current Medications: Meds: Current Medications Medications (Trade) Dose Ordered Sig/Curly Route PRN Reason Start Time Stop Time Status Last Admin Dose Admin Sodium Chloride 1,000 ml @ 1,000 mls/hr 1X ONCE IV 01/11/19 15:00 01/11/19 15:59 DC 01/11/19 15:37 Multivitamins/ Minerals 10 ml/ Folic Acid 1 mg/ Thiamine HCl 100 mg/Sodium Chloride 1,011.1 ml @ 1,000 mls/ hr 1X ONCE IV 01/11/19 15:30 01/11/19 16:30 DC 01/11/19 15:50 I have reviewed the current psychotropics carefully including drug interactions. Risk benefit ratio favors no change other than as noted in my dictated progress note. Diagnosis: Problems: (1) Major depressive disorder, recurrent episode (2) Suicidal ideation (3) Alcohol intoxication SHARRON MOORE MD Jan 11, 2019 20:43
[2019-01-11 22:48] VITALS: BP 110/56
[2019-01-12 06:38] VITALS: BP 123/72
[2019-01-12] MEDS: MVI, ADULT NO.4 WITH VIT K 10 ML, THIAMINE INJ 100 MG, FOLIC ACID INJ 1 MG in IV NORMAL... IV SCH ×4 (10:14)
[2019-01-12 10:27] VITALS: BP 144/91
[2019-01-12 15:48] VITALS: BP 133/91
[2019-01-12] MEDS ORDERED: KETOROLAC 30 MG/ML VIAL. IV PRN (16:15)
[2019-01-12 18:54] VITALS: BP 133/74
--- NOTE | 2019-01-12 20:49 | HP ---
ADMIT DATE: HISTORY OF PRESENT ILLNESS: The patient is a 33-year-old female patient who presented to the Emergency Room with suicidal ideation. She does not have a defined plan. She reports CPR having been performed on her this morning because of overdosing. The patient denied any chest pain or difficulty breathing. The patient reports drinking a bottle of whiskey just prior to arrival. Denied any other co-ingestants and nothing makes symptoms better or worse. She apparently was investigated in the Emergency Room, has had a chest x-ray, which showed no radiographic evidence of acute cardiopulmonary process. Her lab work was within acceptable range. Her toxic screen showed her blood alcohol level was extremely high at 347; was positive also for amphetamine, methamphetamine as well as cannabinoid and was admitted for observation and admission to Inpatient Psych Unit. PAST MEDICAL HISTORY: Significant for bipolar disorder, anxiety and depression. She has also posttraumatic stress disorder. PAST SURGICAL HISTORY: Unremarkable. FAMILY HISTORY: Also unremarkable. SOCIAL HISTORY: She is single and has no children. She smokes a pack a day, drinks alcohol heavily and is abusing. ALLERGIES: She has no known drug allergies. MEDICATIONS: She is on cyclobenzaprine 10 mg 3 times a day, lorazepam 1 mg every 6 hours, naproxen 500 mg twice a day, Zofran 8 mg 4 times a day. PHYSICAL EXAMINATION: GENERAL: On arrival to the Emergency Room, she looked well and was clearly in no apparent respiratory distress. No pallor, jaundice, cyanosis or thyromegaly. No jugular venous distention. No lower limb edema. VITAL SIGNS: Her heart rate was 109, blood pressure 155/112, temperature was 98.4, respiratory rate 20, and oxygen saturation was 92%. HEAD, EYES, EARS, NOSE AND THROAT: Showed normocephalic, atraumatic. NECK: Supple. HEART: Showed normal first and second heart sounds. No gallop, rub or murmur. CHEST: Clear to auscultation. No crepitation or rhonchi. ABDOMEN: Slightly distended, soft, nontender. No guarding or rigidity. No organomegaly. All hernial orifices intact. Bowel sounds normal. NEUROLOGIC: She was awake, alert, responding appropriately. All cranial nerves intact. She moves extremities without difficulty. She was tearful. LABORATORY DATA: Showed that her white cell count was 6300; hemoglobin 13; hematocrit 38; MCV 98 and platelet count 212,000. Her serum sodium 143, potassium 3.5, chloride 108, bicarbonate 24, anion gap of 11, BUN 8, creatinine 0.5, estimated GFR was 144 mL per minute. Her glucose was 95, calcium was 8.1, magnesium 2.1. Total bilirubin, AST, ALT, alkaline phosphatase were normal. Total protein was 7.5, albumin ____, lipase was 77. Her prothrombin time was 10.2, INR 1. Toxic screen was positive for amphetamine, methamphetamine, was negative for cocaine, positive for cannabinoids. Her blood alcohol level was 347 mg/dL. Her chest x-ray was unremarkable, showed no radiographic evidence of acute cardiopulmonary process. ASSESSMENT AND PLAN: The patient was admitted with alcohol intoxication, suicidal ideation. We [facility] to assist with [facility]. ANTONY CORRAL MD DR: MICHELLE/radha JOB#: [id number] / [id number]
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
--- NOTE | 2019-01-12 22:19 | PDOC ---
Exam Note: Robert Note: Please also refer to the separate dictated note~for this date of service dictated separately.~Patient seen individually. Discussed the patient with Nursing staff reviewed the chart.~Reviewed interim history and current functioning. Reviewed vital signs,~Labs/ Radiology~and current medications noted below. Continue current treatment with the changes noted in the dictated addendum note Assessment: Vital Signs/I&O: Vital Signs Date Time Temp Pulse Resp B/P (MAP) Pulse Ox O2 Delivery O2 Flow Rate FiO2 01/12/19 20:00 Room Air 01/12/19 18:54 98.4 77 20 133/74 (93) 98 I & O 01/11/19 01/11/19 01/12/19 15:00 23:00 07:00 Intake Total 2311.1 ml 300 ml Output Total 600 ml Balance 1711.1 ml 300 ml Labs: Laboratory Tests Test 01/12/19 06:35 Ethyl Alcohol Level < 10 mg/dL (0-10) Current Medications: Meds: Current Medications Medications (Trade) Dose Ordered Sig/Curly Route PRN Reason Start Time Stop Time Status Last Admin Dose Admin Multivitamins/ Minerals 10 ml/ Thiamine HCl 100 mg/Folic Acid 1 mg/Sodium Chloride 1,011.2 ml @ 100 mls/ hr DAILY IV 01/12/19 09:00 01/15/19 19:07 01/12/19 10:16 Ketorolac Tromethamine (Toradol 30mg Vial) 30 mg PRN Q6HRS PRN IV PAIN 01/12/19 16:15 01/17/19 16:14 01/12/19 16:26 I have reviewed the current psychotropics carefully including drug interactions. Risk benefit ratio favors no change other than as noted in my dictated progress note. Diagnosis: Problems: (1) Alcohol intoxication (2) Suicidal ideation (3) Major depressive disorder, recurrent episode SHARRON MOORE MD Jan 12, 2019 22:19
[2019-01-13 06:12] VITALS: BP 140/86
[2019-01-13] MEDS: MVI, ADULT NO.4 WITH VIT K 10 ML, THIAMINE INJ 100 MG, FOLIC ACID INJ 1 MG in IV NORMAL... IV SCH ×4 (09:00)
[2019-01-13] MEDS ORDERED: SPRINTEC PO SCH (09:00)
[2019-01-13] MEDS ORDERED: MULTIVITAMIN with MINERAL TABLET. PO SCH (10:00)
[2019-01-13] MEDS ORDERED: FOLIC ACID 1 MG TABLET PO SCH (10:00)
[2019-01-13] MEDS ORDERED: THIAMINE 100 MG TABLET. PO SCH (10:00)
[2019-01-13] MEDS ORDERED: OMEP20CA10 PO (11:52)
[2019-01-13] MEDS ORDERED: SERT50TA PO (11:52)
[2019-01-13] MEDS ORDERED: QUET50TA9 PO (11:52)
[2019-01-13] MEDS ORDERED: SERTRALINE 50 MG TABLET. PO SCH (12:00)
[2019-01-13] MEDS ORDERED: PANTOPRAZOLE 40 MG TABLET. PO SCH (12:00)
[2019-01-13 15:05] VITALS: BP 145/88
--- NOTE | 2019-01-13 16:58 | PN ---
DATE: 01/12/2019 PROGRESS NOTE This late entry January 12 covers elements not covered in my initial note. SUBJECTIVE: I met with the patient in evening of January 12, ICU bed 2, but she is sedated. Per nursing report, she is being screened for transfer to [facility] in [place] for psychiatric inpatient stabilization. She remains somewhat withdrawn. REVIEW OF SYSTEMS: No CV, , pulmonary, eye system symptoms on review, but not very forthcoming consequent to sedation. MENTAL STATUS EXAM: When awake, the patient has been oriented. Speech has been coherent. She is still depressed, anxious, minimizes this. She has reportedly denied active suicidal ideation, but this was quite prominent at admission. IMPRESSION: Unchanged from initial note. PLAN: No change from initial note, with transfer to inpatient psychiatry for stabilization. MAN Zahraa MOORE MD DR: CRYSTAL/radha JOB#: [id number] / [id number]
[2019-01-13] MEDS ORDERED: QUEtiapine 100 MG TABLET. PO SCH (21:00)
--- NOTE | 2019-01-13 23:45 | DS ---
DATE OF DISCHARGE: 01/13/2019 HOSPITAL COURSE: The patient is a 33-year-old female patient who presented to the Emergency Room with suicidal ideation. She does not have defined plan. She reported CPR having been performed on the morning of admission because of overdosing. She denied any chest pain or difficulty breathing. The patient reports drinking a bottle of whiskey just prior to arrival. She denied any other co-ingestant and nothing makes symptoms better or worse. She was investigated in the Emergency Room, has had a chest x-ray, which showed no radiographic evidence of any acute cardiopulmonary process. Her labs work within acceptable range. Her toxic screen showed that her blood alcohol level was extremely high at 347, was positive for amphetamine, methamphetamine as well as cannabinoid, was admitted for observation and admitted to Inpatient Psych Unit. She remained hemodynamically stable. Her lab work was stable and was accepted for inpatient psych treatment ____ and was discharged ____. PHYSICAL EXAMINATION: GENERAL: On examining her today, she looked well and was clearly in no apparent respiratory distress. No pallor, jaundice, cyanosis or thyromegaly. No jugular venous distention. No limb edema. VITAL SIGNS: Her heart rate was 74, blood pressure 145/88, temperature was 97.7, respiratory rate 22, and oxygen saturation was 98%. The rest of clinical exam is stable, has not really changed. LABORATORY DATA: Her white cell count was 6300, hemoglobin 13, hematocrit 38, MCV 98, platelet count ____. Her chemistry showed a serum sodium of 143, potassium 3.5, chloride 108, bicarbonate 24, anion gap of 11, BUN 8, creatinine 0.5, estimated GFR was 144 mL per minute. Her glucose was 95, calcium was 8.1, magnesium was 2.1. Total bilirubin, AST, ALT, alkaline phosphatase were normal. Her total protein was 7.5, albumin 3.6 and lipase was 77. Her prothrombin time was 10.2, INR of 1. Toxic screen showed that her blood alcohol level was less than 10. She was positive for amphetamine, methamphetamine and cannabinoids. DISCHARGE MEDICATIONS: She will be discharged to continue on omeprazole 20 mg once a day, quetiapine fumarate 100 mg at bedtime, sertraline or Zoloft 50 mg once a day. She was also discharged on folic acid 1 mg once a day, thiamine 100 mg once a day, multivitamin 1 tablet once a day. FINAL DISCHARGE DIAGNOSES: Bipolar disorder, anxiety, depression, posttraumatic stress disorder, suicidal ideation and alcohol and polysubstance abuse. ANTONY CORRAL MD DR: MICHELLE/radha JOB#: [id number] / [id number]
== END 2019-01-13 16:45 | DRG 918 ==
LOC: EEVIPCON 13:45 → ER 13:45 → ICU 16:51 → OBSVTOIN 17:21
PROVIDERS: ADMIT Internal Medicine; ATTEND Internal Medicine
PROC: 5A12012 Performance of Cardiac Output, Single, Manual (ICD-10-PCS; principal; 2019-01-11)
DX: T51.0X1A Toxic effect of ethanol, accidental (unintentional), initial encounter (principal); R45.851 Suicidal ideations; F31.81 Bipolar II disorder; F10.129 Alcohol abuse with intoxication, unspecified; F17.210 Nicotine dependence, cigarettes, uncomplicated; F43.10 Post-traumatic stress disorder, unspecified; Y92.89 Other specified places as the place of occurrence of the external cause
CPT/HCPCS: 36415; 71045; 80053; 80307; 80329; 83690; 83735; 83880; 84484; 85025; 85610; 87641; 93005; 96365; G0379; G0480; J1885; J2060; 82003; 99285-25; J7030

== ENCOUNTER 2019-03-02 20:55 | Emergency (ER) | payer SELFPAY ==
[~2019-03-02] VITALS: Ht 157.5 cm; Wt 74.0 kg
[~2019-03-02 20:55] MED LIST changes: +OMEP20CA10 PO; +QUET50TA9 PO; +SERT50TA PO
[2019-03-02 22:00] VITALS: BP 137/71
== END 2019-03-02 22:00 | disposition home or self-care (01) ==
LOC: ER 20:55
DX: Z53.21 Procedure and treatment not carried out due to patient leaving prior to being seen by health care provider (principal)
CPT/HCPCS: 99281